=== PATIENT | male | born 1990 | race Caucasian/White ===

== ENCOUNTER → 2016-12-04 | Outpatient (CLI) | payer BC, MEDICAID ==
[~2016-12-04] MED LIST: ALENDRONATE SOD70 MG PO; ATIVAN2 MG PO; BACLOFEN SUB-Q; BACTRIM DS1 TAB PO; BENADRYL25 MG PO; BENADRYL50 MG PO; BENZAMYCIN TOP; BETADINE SOLUT118 ML TOP; COLACE100 MG PO; DEPAKOTE EXTEN500 MG PO; DULCOLAX10 MG R; DURAGESIC 25MC25 MCG TOP; EMLA5 GM TOP; EPIPEN0.3 MG IM; HYDROCORT 1% CR30 GM TOP; IBANDRONATE SO150 MG PO; LASIX40 MG PO; LIORESAL10 MG PO; MINOCIN100 MG PO; MINTOX MAXIMUM355 ML PO; MIRALAX17 GM PO; MOTRIN/ADV100 MG/5 M PO; NEURONTIN300 MG PO; NEXIUM40 MG PO; NORCO 5-325 MG1 TAB PO; PROTONIX40 MG PO; PROVIGIL100 MG PO; ROBAFEN100 MG/5 M PO; TYLENOL LI160 MG/5 M PO; ZONISAMIDE100 MG PO; [UNRECOGNIZED DRUG - OTHER] TOP
[2016-12-04 10:10] LABS: BASOPHIL % 0.2 %; EOSINOPHIL % 0.5 %; HEMATOCRIT 47.6 % (37.0-53.0); IMMATURE GRANULOCYTE % 0.5 %; LYMPHOCYTE # 2.2 K/uL (0.8-4.0); MCH 31.1 pg (27.0-34.0); MCHC 33.6 gm/dL (32.0-36.5); MCV 92.4 fl (83.0-98.0); MONOCYTE # 0.4 K/uL (0.0-1.0); MONOCYTE % 10.1 %; MPV 10.6 fl (9.4-12.4); NEUTROPHIL # (ANC) 1.7 K/uL (1.4-9.0); NEUTROPHIL % 37.7 %; NRBC % 0 /100WBC (0-0.00); PLATELET COUNT 195 K/uL (150-450); RBC 5.15 M/uL (4.00-6.00); RDW-CV 12.9 % (11.9-14.6); WBC 4.4 K/uL (4.0-11.0)
[2016-12-04 10:54] LABS: ANION GAP 12.7 (10.0-19.0); BLOOD UREA NITROGEN 22 mg/dL (6-24); CALCIUM 8.6 mg/dL (8.5-10.5); CHLORIDE 106 mMol/L (96-110); CO2 27 mMol/L (22-32); CREATININE 0.8 mg/dL (0.6-1.3); ESTIMATED GFR (MDRD EQUATION) > 60; POTASSIUM 3.7 mMol/L (3.7-5.1); SODIUM 142 mMol/L (135-145)
== END | disposition disaster alternative care site (69) ==
LOC: LBETH 12-03 12:58
PROVIDERS: Physician Assistant
DX: N21.0 Calculus in bladder (principal); Z79.899 Other long term (current) drug therapy

== ENCOUNTER → 2016-12-07 | Day surgery (SDC) | payer BC, MEDICAID ==
[~2016-12-07] VITALS: Ht 154.9 cm; Wt 54.1 kg
--- NOTE | ~2016-12-07 | OR ---
PATIENT'S NAME: ELIGIO PEÑA [facility] [place] AGE: 26 Y [address] ROOM: [place] [address] LOCATION: [facility] [place] ADMIT DATE: 12/07/2016 OR/Procedure Report DISCHARGE DATE: FAMILY PHYSICIAN: Deandre Durán ATTENDING PHYSICIAN: Radha Amador SURGEON: Radha Amador MD OPEN DIE INSPECTOR: DATE OF PROCEDURE: 12/07/2016 PREOPERATIVE DIAGNOSIS: Bladder stone. POSTOPERATIVE DIAGNOSIS: Bladder stone. PROCEDURE PERFORMED: Cystoscopy, lithoclast for bladder stone. ANESTHESIA: MAC. COMPLICATIONS: None. 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 DETAILS OF PROCEDURE: After informed consent obtained, the patient was taken to the operating room. A MAC anesthetic was applied. He was placed in the dorsal lithotomy position. The groin area was prepped and draped in normal sterile fashion. Cystoscope was introduced into the urethra and bladder. Urethra was very torturous and was somewhat difficult to enter into the bladder. Once entering the bladder, the stone was identified. The lithoclast was then introduced and the stone was broken up to multiple smaller fragments. I then irrigated the fragments out. After some effort, I was able to irrigate all the fragments out other than small particles of dust. Following this, the bladder was empty and the procedure terminated. The patient tolerated the procedure well and transferred to recovery room in good condition. MD FRANCINE MANSFIELD/randi /[id number] CC: NIA Roche d: 12/07/16 1824 t: 12/08/162303, OPERATIVE SUMMARY
== END ==
LOC: GPOC 12-03 08:00 → GSDC 07:58
PROC: 0TCB8ZZ Extirpation of Matter from Bladder, Via Natural or Artificial Opening Endoscopic (ICD-10-PCS; principal; 2016-12-07)
DX: N21.0 Calculus in bladder (principal); K21.9 Gastro-esophageal reflux disease without esophagitis; F72 Severe intellectual disabilities; K59.00 Constipation, unspecified; M62.838 Other muscle spasm; M81.0 Age-related osteoporosis without current pathological fracture; Z79.899 Other long term (current) drug therapy; Z91.040 Latex allergy status; Z88.8 Allergy status to other drugs, medicaments and biological substances
CPT/HCPCS: J1956; J2001; J7030